=== PATIENT | male | born 1945 | race African-American/Black ===

== ENCOUNTER 2017-11-16 08:22 | Observation (INO) ==
[2017-11-16] MEDS ORDERED: Nitroglycerin 0.4 MG TAB.SUBL SL PRN (08:33)
--- NOTE | 2017-11-16 08:38 | Emergency Department Note ---
Disposition Clinical Impression: Pulmonary nodule Chest pain Qualifiers: Chest pain type: unspecified Qualified Code(s): R07.9 - Chest pain, unspecified Disposition: Admitted As Inpatient Condition: Good Referrals: Lashonda Benitez MD [Primary Care Provider] - Forms: ED Satisfaction Letter Time of Disposition: 09:32 Chest Pain HPI - General Chief Complaint: ED Chest Pain Stated Complaint: CP Time Seen by Provider: 11/16/17 08:28 Source: patient, family Mode of arrival: ambulatory Limitations: no limitations Vital Signs Reviewed: Yes Nursing Notes Reviewed: Yes - History of Present Illness HPI Narrative: Chest discomfort described as gas and indigestion started at 03:00. Symptoms improved but persistent. The patient feels lightheaded when he stands, dizzy and has a dry mouth. The patient has a history of myocardial infarction in the mid 90s without coronary artery stenting. Pt complaint: chest pain Onset (ago): hour(s) Duration: constant Onset: during rest Pain Location: substernal Severity: moderate Severity scale (1-10): 4 Quality: heaviness, other Pain Radiation: none Improves with: nothing Worsens with: nothing Associated symptoms: Reports: other ([place] cold, dry mouth, lightheaded, dizzy) Treatments prior to arrival chest pain: none - Related Data Home Medications Medication Instructions Recorded Confirmed Aspirin [Lo-Dose Aspirin EC] 81 mg PO DAILY 11/16/17 11/16/17 Metoprolol Tartrate [Metoprolol 50 mg PO DAILY 11/16/17 11/16/17 Tartrate] Multivitamin [One Daily Essential] 1 tab PO DAILY 11/16/17 11/16/17 [place]-3 Fatty Acids [Fish Oil] 300 mg PO DAILY 11/16/17 11/16/17 Tamsulosin [Flomax] 0.4 mg PO DAILY 11/16/17 11/16/17 hydroCHLOROthiazide 25 mg PO DAILY 11/16/17 11/16/17 [Hydrochlorothiazide] Allergies Allergy/AdvReac Type Severity Reaction Status Date / Time No Known Allergies Allergy Verified 11/16/17 09:45 All systems ED: reviewed and negative except as stated. Constitutional: Reports: as per HPI Eyes: Reports: other (Dry mouth) ENT ED: Reports: as per HPI Cardiovascular: Reports: chest pain Respiratory: Reports: as per HPI Gastrointestinal: Reports: as per HPI Genitourinary: Reports: as per HPI Musculoskeletal: Reports: as per HPI Integumentary: Reports: as per HPI Neurological: Reports: other (Lightheaded, dizzy) Psychiatric: Reports: as per HPI Endocrine: Reports: as per HPI Hematological/Lymphatic: Reports: as per HPI Allergic/Immunologic: Reports: as per HPI Chest Pain PMH - Past Medical History Medical history: Reports: coronary artery disease, hyperlipidemia, hypertension , myocardial infarction Surgical history: Reports: herniorrhaphy Psychiatric history: Reports: no psych history - Social History Smoking Status: Former smoker Alcohol use: Reports: none Drug use: Reports: none Physical Exam - General Limitations: no limitations General appearance: alert, in no apparent distress - Head Head exam: atraumatic - Eye Eye exam: Present: normal appearance - ENT ENT exam: normal exam - Neck Neck exam: Present: normal inspection, full ROM - Chest Chest inspection: Present: normal inspection, symmetric chest wall rise - Respiratory Respiratory exam: Present: normal lung sounds bilaterally - Cardiovascular Cardiovascular exam: Present: regular rate, normal rhythm, normal heart sounds - Abdominal Exam Abdominal exam: Present: soft, Non-Tender Abdominal tenderness: Absent: RUQ - Rectal Exam Rectal exam: Present: deferred - Extremities Exam Extremities exam: Present: normal inspection - Neurological Exam Neurological exam: Present: alert, oriented X3, CN II-XII intact - Psychiatric Psychiatric exam: Present: normal affect, normal mood - Skin Skin exam: Present: warm, dry, intact Course Course Narrative: Patient presents with chest pain. Initial ECG does not identify any acute ST segment elevation. Chest pain workup with attention to cardiac troponin initiated Vital Signs Temperature 99.6 F 11/16/17 08:23 Pulse Rate 82 11/16/17 08:23 Respiratory Rate 18 11/16/17 08:23 Blood Pressure 174/84 11/16/17 08:23 O2 Sat by Pulse Oximetry 97 11/16/17 08:23 Temperature 99.6 F 11/16/17 08:33 Pulse Rate 73 11/16/17 10:25 Respiratory Rate 18 11/16/17 10:25 Blood Pressure 134/75 11/16/17 10:25 O2 Sat by Pulse Oximetry 94 11/16/17 10:25 Oxygen Delivery Oxygen Delivery Room Air Chest Pain - Lab Data Lab results reviewed: Yes I reviewed the patient's lab results. Result diagrams: 11/16/17 08:35 11/16/17 08:35 Lab Results 11/16/17 11/16/17 11/16/17 Range/Units 08:35 08:35 08:35 WBC 9.2 (4.3-11.1) K/mcL RBC 5.21 (4.19-5.50) M/mcL Hgb 15.9 (12.9-16.9) g/dL Hct 43.4 (37.5-50.1) % MCV 83.3 (83.0-100.0) fL MCH 30.5 (28.0-33.3) pg MCHC 36.6 H (31.6-35.5) g/dL RDW 12.6 (11.5-14.5) % Plt Count 159 (140-400) K/mcL MPV 11.7 (9.4-12.4) fL Immature Gran % 0.2 (0-4) % Seg Neutrophils % 92.7 % Lymphocytes % 2.8 % Monocytes % 3.8 % Eosinophils % 0.4 % Basophils % 0.1 % Neutrophils # 8.5 (1.6-8.9) K/mcL Lymphocytes # 0.3 L (0.6-4.6) K/mcL Monocytes # 0.4 (0.0-1.3) K/mcL Eosinophils # 0.0 (0.0-0.6) K/mcL Basophils # 0.0 (0.0-0.2) K/mcL PT 10.8 (9.4-12.1) Seconds INR 1.0 APTT 26.5 (26.0-36.0) Seconds Sodium 145 (136-145) mEq/L Potassium 3.6 (3.5-5.1) mEq/L Chloride 107 (98-107) mEq/L Carbon Dioxide 25 (23-29) mEq/L BUN 20 (8-23) mg/dL Creatinine 1.14 (0.70-1.30) mg/dL Est GFR ( Amer) > 60 (> 60) Est GFR (Non-Af Amer) > 60 (> 60) BUN/Creatinine Ratio 18 (6-26) Glucose 124 H (70-105) mg/dL Calculated Osmolality 304 H (280-300) Calcium 9.6 (8.6-10.3) mg/dL Troponin I < 0.03 (< 0.04) ng/mL - Radiology Data Radiology results reviewed: Yes I reviewed the patient's radiology results. - EKG Data EKG attestation: Yes I reviewed and interpreted this EKG. EKG results narrative: Normal sinus rhythm with first-degree AV block rate 82 FL-221 QRS 99 QT/QTC 367/ 406. Study compared to previous dated 10/15/11 Heart Score - Score History: Moderately Suspicious EKG: Normal Age: Greater than 65 Risk Factors: 1-2 risk factors Troponin: Less than normal limit HEART Score Total: 4
[2017-11-16 09:06] LABS: Basophils % 0.1 %; Eosinophils % 0.4 %; Hematocrit 43.4 % (37.5-50.1); Hemoglobin 15.9 g/dL (12.9-16.9); Immature Granulocytes % 0.2 % (0-4); Lymphocytes # 0.3 K/mcL (0.6-4.6); Lymphocytes % 2.8 %; Mean Corpuscular HGB Conc 36.6 g/dL (31.6-35.5); Mean Corpuscular Hemoglobin 30.5 pg (28.0-33.3); Mean Corpuscular Volume 83.3 fL (83.0-100.0); Mean Platelet Volume 11.7 fL (9.4-12.4); Monocytes # 0.4 K/mcL (0.0-1.3); Monocytes % 3.8 %; Neutrophils # 8.5 K/mcL (1.6-8.9); Platelet Count 159 K/mcL (140-400); Red Blood Count 5.21 M/mcL (4.19-5.50); Red Cell Distribution Width 12.6 % (11.5-14.5); Segmented Neutrophils % 92.7 %
[2017-11-16 09:11] LABS: Prothrombin Time 10.8 Seconds (9.4-12.1)
[2017-11-16 09:13] LABS: Activated Partial Thrombo Time 26.5 Seconds (26.0-36.0)
[2017-11-16 09:29] LABS: BUN/Creatinine Ratio 18 (6-26); Blood Urea Nitrogen 20 mg/dL (8-23); Calcium 9.6 mg/dL (8.6-10.3); Carbon Dioxide 25 mEq/L (23-29); Chloride 107 mEq/L (98-107); Glucose 124 mg/dL (70-105); Osmolality,Calculated 304 (280-300); Potassium 3.6 mEq/L (3.5-5.1); Sodium 145 mEq/L (136-145); eGFR For African Americans > 60 (> 60); eGFR For Non-African Americans > 60 (> 60)
[2017-11-16 09:30] LABS: Troponin I < 0.03 ng/mL (< 0.04)
--- NOTE | 2017-11-16 12:35 | Internal Med History&Physical ---
<Dotty Lockett - Last Filed: 11/16/17 12:26> Date of Encounter: 11/16/17 Time of Encounter: 12:26 Internal Medicine - H&P: HPI Chief complaint: Chest Pain Admitted From: Home Plans for Post Hospital Care: Home History of present illness: Mr. Dean is a 72 year old male who present with a atypical dull pressure in mid -substernal to epigastric region that radiated under both breast with associated nausea and SOB, that woke him up from sleep. The patient has history of HTN, LA in , CAD, and HLD. The patient indicated that his pain continued until he reached the ED was given 1 nitro. He states that he initially thought it was GERD, because he has been having alot of heart burn but he wasn't sure. He indicated that he had been taking prilosec with good relief but until he competed the 30-day supply a while ago. The patient indicated that when he had his LA in the he eventually had a heart cath. No stents were placed. He stated he was treated medically with toprol and made lasting lifestyle changes, which included diet and exercise. The patient indicated that he has not had any cardiac issues since the LA, until today. EKG showed NSR with 1st degree AVB. Rate 84. Bp is marginally high at 147/73. Temp was 99.3. Trop was negative@ <0.03. Chest xray showed a pulmonary nodule on Right upper lobe. Past Med Surg Social Fam HX - Past Medical History Medical history: coronary artery disease, hyperlipidemia, hypertension, myocardial infarction Psychiatric history: no psych history - Past Surgical History Surgical History: herniorrhaphy - Social History Smoking Status: Former smoker Smokeless Tobacco Status: No Alcohol use: none Drug use: none Internal Medicine - H&P: Meds Aspirin [Lo-Dose Aspirin EC] 81 mg PO DAILY 11/16/17 [History] Metoprolol Tartrate [Metoprolol Tartrate] 50 mg PO DAILY 11/16/17 [History] Multivitamin [One Daily Essential] 1 tab PO DAILY 11/16/17 [History] [place]-3 Fatty Acids [Fish Oil] 300 mg PO DAILY 11/16/17 [History] Tamsulosin [Flomax] 0.4 mg PO DAILY 11/16/17 [History] hydroCHLOROthiazide [Hydrochlorothiazide] 25 mg PO DAILY 11/16/17 [History] 3 Allergy/AdvReac Type Severity Reaction Status Date / Time No Known Allergies Allergy Verified 11/16/17 09:45 All Systems PM: A 10-system review of systems was performed and is negative for pertinent findings except as documented above in the HPI. - Constitutional Constitutional: no chills, no fever(s), no night sweats - EENT Eyes: no change in vision, no discharge, no pain, no photophobia Ears: no ear discharge, no ear pain, no tinnitus Nose, mouth and throat: no dysphagia, no nasal discharge, no neck pain, no sore throat - Cardiovascular Cardiovascular ROS IM: chest pain, diaphoresis, dyspnea, no lightheadedness, no palpitations, no syncope - Respiratory Respiratory: no cough, no dyspnea, no wheezing, no excessive phlegm production - Gastrointestinal Gastrointestinal: heartburn, nausea, no abdominal pain, no diarrhea, no hematemesis, no hematochezia, no melena, no vomiting - Musculoskeletal Musculoskeletal ROS IM: no numbness, no tingling - Integumentary Integumentary IM: no rash, no unusual bruising - Neurological Neurological ROS: no confusion, no convulsions, no focal weakness, no numbness, no tingling, no tremor(s) - Hematologic/Lymphatic Hematologic/Lymphatic: no easy bruising - Constitutional Vitals: Temp Pulse Resp BP Pulse Ox 99.6 F 73 18 133/73 94 11/16/17 08:33 11/16/17 10:25 11/16/17 12:12 11/16/17 12:12 11/16/17 10:25 General appearance: Present: A&O X 3 - Head Head exam: Present: atraumatic, normocephalic - Eye Eye exam: Present: PERRL, conjuntiva pink, sclera anicteric Pupils: Present: PERRL - Neck Neck exam general surgery: Present: supple, trachea midline. Absent: lymphadenopathy - Respiratory Respiratory exam: Present: CTAB. Absent: accessory muscle use, rales, rhonchi, wheezes - Cardiovascular Cardiovascular exam: Present: RRR, +S1, +S2. Absent: diastolic murmur, gallop, rubs, systolic murmur - GI/Abdominal GI/Abdominal exam: Present: normal bowel sounds, soft, no peritoneal signs. Absent: distended, tenderness - Extremities Exam Extremities exam: Present: warm, radial pulses palpable and symmetrical. Absent : calf tenderness, cyanotic, pedal edema - Neurological Exam Neurological exam: Present: CN II-XII intact, oriented X3, no focal deficits. Absent: pronater drift, facial droop, speech deficit - Skin Skin exam: Present: dry, intact Internal Med - H&P Results - Labs CBC & Chem 7: 11/16/17 08:35 11/16/17 08:35 - Assessment and plan (1) Chest pain Current Visit: Yes Status: Acute Assessment and plan: The patient chest pain was completely relieved by 1 nitro in the ED. He currently rates pain 0/10. Will get cardiac serial enzymes, give nitro SL prn pain, and cardiac monitoring. Qualifiers: Chest pain type: unspecified Qualified Code(s): R07.9 - Chest pain, unspecified (2) Pulmonary nodule Current Visit: Yes Status: Acute Assessment and plan: The patient was identified as having a pulmonary nodule on the right upper lobe that will need to followed up as outpatient. (3) Hypertension Current Visit: Yes Status: Acute Assessment and plan: Bp is marginally high at 147/73. Will resume HCTZ and metoprolol. Qualifiers: Hypertension type: essential hypertension Qualified Code(s): I10 - Essential (primary) hypertension (4) HLD (hyperlipidemia) Current Visit: Yes Status: Acute Assessment and plan: The patient was given 80 mg atorvastatin and will start 40 mg every HS on . A fasting lipid panel ordered for am. Qualifiers: Hyperlipidemia type: unspecified Qualified Code(s): E78.5 - Hyperlipidemia , unspecified - Time Spent With Patient Total time spent is greater than 50% in coordination of care (as documented) at patient's floor/unit and/or counseling patient: <Stephanie Laboy - Last Filed: 11/16/17 16:35> Date of Encounter: 11/16/17 Internal Medicine - H&P: HPI History of present illness: Mr. Dean is a 72 year old male Past Med Surg Social Fam HX - Family History Sister Living Status: Still Living Hx Family Cardiac Disorders: Yes (HTN) All Systems PM: A 10-system review of systems was performed and is negative for pertinent findings except as documented above in the HPI. - Constitutional Vitals: Temp Pulse Resp BP Pulse Ox 100 F H 72 14 133/67 94 11/16/17 15:05 11/16/17 15:05 11/16/17 15:05 11/16/17 15:05 11/16/17 15:05 Internal Med - H&P Results - Labs CBC & Chem 7: 11/16/17 08:35 11/16/17 08:35 Labs: Cardiac Enzymes 11/16/17 Range/Units 13:49 Troponin I < 0.03 (< 0.04) ng/mL - Attending Attestation Patient is examined and review of the note. Patient is chest pain-free. Had heart catheter almost 20 years ago not sure about the finding but he was advised to continue aspirin and life is started change. 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 Patient need ischemic cardiac workup though has atypical chest pain but several risk factor including positive family history. Will consider anticoagulations therapy if any change in EKG or positive troponin. Will also consult lifeguard if needed. - Time Spent With Patient Total time spent is greater than 50% in coordination of care (as documented) at patient's floor/unit and/or counseling patient:
[2017-11-16] MEDS ORDERED: Acetaminophen 325 MG TABLET PO PRN (21:03)
[2017-11-17 02:07] LABS: BUN/Creatinine Ratio 14 (6-26); Blood Urea Nitrogen 18 mg/dL (8-23); Calcium 8.6 mg/dL (8.6-10.3); Carbon Dioxide 27 mEq/L (23-29); Chloride 102 mEq/L (98-107); Chol/HDL Ratio 3.4 (0-4.9); Cholesterol 143 mg/dL (< 200); Glucose 114 mg/dL (70-105); HDL Cholesterol 42 mg/dL (40-59); LDL Cholesterol,Calculated 84 mg/dL (0-99); Osmolality,Calculated 289 (280-300); Sodium 138 mEq/L (136-145); Triglycerides 84 mg/dL (< 150); eGFR For African Americans > 60 (> 60); eGFR For Non-African Americans 56 (> 60)
[2017-11-17] MEDS ORDERED: Regadenoson 0.4 MG/5 ML SYRINGE IVP ONE (05:35)
[2017-11-17] MEDS ORDERED: hydroCHLOROthiazide 25 MG TABLET PO SCH (09:00)
[2017-11-17] MEDS ORDERED: Aspirin Enteric Coated 81 MG Tablet PO SCH (09:00)
[2017-11-17] MEDS ORDERED: Multivit/Ca/Min/Fe/FA 1 TAB TABLET PO SCH (09:00)
[2017-11-17] MEDS ORDERED: (Omega-3 Fatty Acids [Fish Oil] 300 MG) PO SCH (09:00)
--- NOTE | 2017-11-17 10:26 | Internal Med Progress Note ---
Date of Encounter: 11/17/17 Time of Encounter: 10:23 - Assessment and plan (1) Chest pain Current Visit: Yes Status: Acute Assessment and plan: Presented with midsternal chest pain radiating bilaterally, associated shortness of breath and nausea. Pain currently 0 out of 10 this morning. Was relieved by one nitroglycerin in the ED. No return of chest pain since admission. Resting comfortably in bed. Per auscultation heart tones are S1, S2 , RRR without murmurs rubs or gallops. Lungs are CTA AP and L, no peripheral edema noted, no JVD. Patient underwent a nuclear stress this morning, pending Echocardiogram completed, results are as follows -LVEF 65%, normal LV chamber size wall thickness and function, mild LVDD, mildly dilated right atrium, moderately dilated left atrium, no aortic regurgitation or stenosis noted, no mitral valve regurgitation or stenosis noted , no valvular abnormalities. No evidence of pulmonary hypertension noted Continue to monitor telemetry and closely monitor hemodynamic status Troponins negative 4, EKG unremarkable; no ischemic changes noted Cardiology following Continue cardiac medications Heparin twice a day for DVT prophylaxis Qualifiers: Chest pain type: unspecified Qualified Code(s): R07.9 - Chest pain, unspecified (2) CAD (coronary artery disease) Current Visit: Yes Status: Acute Assessment and plan: History of CAD, prior MO in 1993. Has not had cardiac workup since 1993. Continue aspirin, statin and beta stiven. See assessment and plan above Qualifiers: Qualified Code(s): I25.10 - Atherosclerotic heart disease of [place] coronary artery without angina pectoris (3) HLD (hyperlipidemia) Current Visit: Yes Status: Acute Qualifiers: Hyperlipidemia type: unspecified Qualified Code(s): E78.5 - Hyperlipidemia , unspecified (4) Hypertension Current Visit: Yes Status: Acute Assessment and plan: History of HTN, BP stable, continue anti-HTN medications. HCTZ, metoprolol Qualifiers: Hypertension type: essential hypertension Qualified Code(s): I10 - Essential (primary) hypertension (5) Pulmonary nodule Current Visit: Yes Status: Acute Assessment and plan: Incidental pulmonary nodule found on chest x-ray findings are as follows 15 mm dense nodular density superimposed upon the anterior aspect of the right 1st rib favored to represent costal cartilage calcification or underlying calcified granuloma. Malignant nodule cannot be completely excluded but felt to be less likely. Follow-up CT chest can be completed as outpatient Denies any flu/URI type symptoms including cough, fevers, chills, weight loss, night sweats Stable from a respiratory perspective on room air - Time Spent With Patient Total time spent is greater than 50% in coordination of care (as documented) at patient's floor/unit and/or counseling patient: 25 - 35 minutes - Subjective Interval history: Mr. Dean is a 72-year-old male who presented to ED with atypical dull pressure that is midsternal and radiation bilaterally. Associated symptoms include nausea and shortness of breath. He reports that the chest pressure woke him up from sleep around 3 AM and improved with nitroglycerin in the ED. KG negative for ischemia, troponins negative 3. Patient denies any chest pain this morning , reports that he has no troubles breathing. - Constitutional Vitals: Temp Pulse Resp BP Pulse Ox 98.9 F 77 16 119/72 92 11/17/17 10:10 11/17/17 10:10 11/17/17 10:10 11/17/17 10:10 11/17/17 10:10 General appearance: Present: A&O X 3 - Head Head exam: Present: atraumatic, normocephalic - Eye Eye exam: Present: PERRL, conjuntiva pink, sclera anicteric Pupils: Present: PERRL - Neck Neck exam general surgery: Present: supple, trachea midline. Absent: lymphadenopathy - Respiratory Respiratory exam: Present: CTAB. Absent: accessory muscle use, rales, rhonchi, wheezes - Cardiovascular Cardiovascular exam: Present: RRR, +S1, +S2. Absent: diastolic murmur, gallop, rubs, systolic murmur - GI/Abdominal GI/Abdominal exam: Present: normal bowel sounds, soft, no peritoneal signs. Absent: distended, tenderness - Extremities Exam Extremities exam: Present: warm, radial pulses palpable and symmetrical. Absent : calf tenderness, cyanotic, pedal edema - Neurological Exam Neurological exam: Present: CN II-XII intact, oriented X3, no focal deficits. Absent: pronater drift, facial droop, speech deficit - Skin Skin exam: Present: dry, intact Internal Medicine: Result - Labs CBC & Chem 7: 11/16/17 08:35 11/17/17 00:52 Labs: BMP 11/17/17 00:52 Sodium 138 Potassium 3.0 L Chloride 102 Carbon Dioxide 27 BUN 18 Creatinine 1.28 Glucose 114 H Calcium 8.6 Cardiac Enzymes 11/16/17 11/16/17 11/17/17 Range/Units 13:49 20:30 00:52 Troponin I < 0.03 < 0.03 < 0.03 (< 0.04) ng/mL - ABG Interpretation ABG results: PT/INR, D-dimer PT 10.8 Seconds (9.4-12.1) 11/16/17 08:35 - Impressions Impressions Echocardiogram 11/17/17 07:00 Impressions: LVEF 65%. Normal LV chamber size, wall thickness and function. Mild left ventricular diastolic dysfunction. Normal right ventricular structure and function. No evidence of pulmonary hypertension. No significant valvular dysfunction. Left Ventricular Wall Motion: Rest Echo Findings All wall segments showed normal motion. Findings: Study Quality * Technically adequate exam. ECG Findings * Normal sinus rhythm. Left Ventricle * LVEF 65%. * Normal LV chamber size, wall thickness and function. * Mild left ventricular diastolic dysfunction. Right Ventricle * Normal right ventricular structure and function. Left Atrium * Moderately dilated left atrium. Right Atrium * Mildly dilated right atrium. Aortic Valve * Trileaflet aortic valve with normal function. * No aortic regurgitation. * No aortic stenosis. Mitral Valve * Normal mitral valve structure and function. * No mitral regurgitation. * No mitral stenosis. Tricuspid Valve * Normal tricuspid valve structure and function. * Trace tricuspid regurgitation. * No evidence of pulmonary hypertension. Pulmonic Valve * Normal pulmonic valve structure. * Mild pulmonic regurgitation. Aorta * Normally sized aortic root. Pericardium * The pericardium appears normal. IVC * Normal IVC dimensions and inspiratory collapse. Pulmonary Artery * Normal visualized portions of the main pulmonary artery. Consult Discharge Plan - Plan Referrals: Lashonda Benitez MD [Primary Care Provider] -
[2017-11-17 11:07] LABS: Bilirubin,Urine Small (Negative); Blood,Urine Negative (Negative); Clarity,Urine Clear (Clear); Color,Urine Dark Yellow (Yellow); Glucose,Urine (UA) Normal (Normal); Ketones,Urine Negative (Negative); Leukocyte Esterase,Urine Negative (Negative); Nitrite,Urine Negative (Negative); Protein,Urine Trace mg/dL (Neg-Trace); Specific Gravity,Urine 1.022 (1.010-1.025); Urobilinogen,Urine Normal (Normal)
[2017-11-17 11:09] LABS: Bacteria,Urine None Seen per hpf (None-Few); Hyaline Casts,Urine None Seen per lpf (None-Few); Squamous Epithelial Cell,Urine Moderate per lpf (None-Few); WBC,Urine 0-3 per hpf (0-3)
[2017-11-17 14:32] VITALS: BP 120/73
--- NOTE | 2017-11-17 15:48 | Electrocardiograph Report ---
[address] [address] Test Date: 2017-11-16 Pat Name: Francisco Javier Dean Department: 104 Room: 3B21 Gender: M Food Service Specialist: BERT : 1945 Requested By: [place] Order Number: [id number] Reading MD: Javier Rodriguez Measurements Intervals [place] Rate: 82 P: 47 [place]: 221 QRS: 6 QRSD: 99 T: 54 QT: 367 QTc: 406 Interpretive Statements SINUS RHYTHM WITH FIRST DEGREE AV BLOCK Electronically Signed On 11-17-2017 15:46:43 EDT by Javier Rodriguez
--- NOTE | 2017-11-17 16:19 | Discharge Summary ---
- NOTES TO OUTPATIENT PROVIDER Notes to Outpatient Provider: Patient admitted for ACS rule out. Admitted with chest pain which has since resolved. Workup found to be negative. ECG with no ischemic changes, troponins negative and stress test unremarkable. to follow- up with PCP in one week Orders not resulted at time of discharge: Pending orders 11/16/17 13:49 Culture,Blood [BC] Routine 11/16/17 16:25 NM lisandro perf SPECT multi [NM] Routine 11/18/17 04:00 B-Type Natriuretic Peptide AM 0400 Basic Metabolic Panel AM 0400 11/19/17 04:00 B-Type Natriuretic Peptide AM 0400 Basic Metabolic Panel AM 0400 Date of Encounter: 11/17/17 Time of Encounter: 16:16 - Discharge Diagnosis (1) Chest pain Priority: Primary Status: Acute Assessment and Plan: Presented with midsternal chest pain radiating bilaterally, associated shortness of breath and nausea. Pain currently 0 out of 10 this morning. Was relieved by one nitroglycerin in the ED. No return of chest pain since admission. Resting comfortably in bed. Per auscultation heart tones are S1, S2 , RRR without murmurs rubs or gallops. Lungs are CTA AP and L, no peripheral edema noted, no JVD. Patient is continue to have an uneventful hospital course , has not had a return of chest pain. He has remained hemodynamically stable throughout the stay. Workup has been found to be completely negative. The patient is medically stable and safe for discharge. He has been instructed to continue cardiac medications, furthermore, he has been instructed that he should follow up with his primary care provider within one week of discharge. Additionally, the patient has been instructed that should chest pain and/or shortness of breath return he should return to the ED immediately. Patient underwent a nuclear stress this morning, stress test found to be negative for ischemia, perfusion imaging negative for ischemia Echocardiogram completed, results are as follows -LVEF 65%, normal LV chamber size wall thickness and function, mild LVDD, mildly dilated right atrium, moderately dilated left atrium, no aortic regurgitation or stenosis noted, no mitral valve regurgitation or stenosis noted , no valvular abnormalities. No evidence of pulmonary hypertension noted Continue to monitor telemetry and closely monitor hemodynamic status Troponins negative 4, EKG unremarkable; no ischemic changes noted Cardiology following Continue cardiac medications Heparin twice a day for DVT prophylaxis Qualifiers: Chest pain type: unspecified Qualified Code(s): R07.9 - Chest pain, unspecified (2) CAD (coronary artery disease) Priority: Secondary Status: Acute Assessment and Plan: History of CAD, prior SD in 1993. Has not had cardiac workup since 1993. Continue aspirin, statin and beta stiven. See assessment and plan above Qualifiers: Qualified Code(s): I25.10 - Atherosclerotic heart disease of [place] coronary artery without angina pectoris (3) HLD (hyperlipidemia) Priority: Secondary Status: Acute Qualifiers: Hyperlipidemia type: unspecified Qualified Code(s): E78.5 - Hyperlipidemia , unspecified (4) Hypertension Priority: Secondary Status: Acute Assessment and Plan: History of HTN, BP stable, continue anti-HTN medications. HCTZ, metoprolol Qualifiers: Hypertension type: essential hypertension Qualified Code(s): I10 - Essential (primary) hypertension (5) Pulmonary nodule Priority: Secondary Status: Acute Assessment and Plan: Incidental pulmonary nodule found on chest x-ray findings are as follows 15 mm dense nodular density superimposed upon the anterior aspect of the right 1st rib favored to represent costal cartilage calcification or underlying calcified granuloma. Malignant nodule cannot be completely excluded but felt to be less likely. Follow-up CT chest can be completed as outpatient Denies any flu/URI type symptoms including cough, fevers, chills, weight loss, night sweats Stable from a respiratory perspective on room air Hospital course: Mr. Dean is a 72 year old male Discharge discussed with: patient, family, nurse, business information consultant - Time Spent with Patient Total time spent providing and/or coordinating discharge services: Greater than 30 minutes - Discharge Medications Home Medications: Aspirin [Lo-Dose Aspirin EC] 81 mg PO DAILY 11/16/17 [History] Metoprolol Tartrate 50 mg PO DAILY 11/16/17 [History] Multivitamin [One Daily Essential] 1 tab PO DAILY 11/16/17 [History] [place]-3 Fatty Acids [Fish Oil] 300 mg PO DAILY 11/16/17 [History] Tamsulosin [Flomax] 0.4 mg PO DAILY 11/16/17 [History] hydroCHLOROthiazide [Hydrochlorothiazide] 25 mg PO DAILY 11/16/17 [History] Allergies/Adverse Reactions: 3 Allergy/AdvReac Type Severity Reaction Status Date / Time No Known Allergies Allergy Verified 11/16/17 09:45 Date of admission: 11/16/17 12:05 Primary care physician: Lashonda Benitez MD Discharging clinician: Arnoldo Vang Anticipated date of discharge: 11/17/17 - Constitutional Vitals: Temp Pulse Resp BP Pulse Ox 98.1 F 68 17 120/73 95 11/17/17 14:31 11/17/17 14:31 11/17/17 14:31 11/17/17 14:31 11/17/17 14:31 General appearance: Present: A&O X 3 - Head Head exam: Present: atraumatic, normocephalic - Eye Eye exam: Present: PERRL, conjuntiva pink, sclera anicteric Pupils: Present: PERRL - Neck Neck exam general surgery: Present: supple, trachea midline. Absent: lymphadenopathy - Respiratory Respiratory exam: Present: CTAB. Absent: accessory muscle use, rales, rhonchi, wheezes - Cardiovascular Cardiovascular exam: Present: RRR, +S1, +S2. Absent: diastolic murmur, gallop, rubs, systolic murmur - GI/Abdominal GI/Abdominal exam: Present: normal bowel sounds, soft, no peritoneal signs. Absent: distended, tenderness - Extremities Exam Extremities exam: Present: warm, radial pulses palpable and symmetrical. Absent : calf tenderness, cyanotic, pedal edema - Neurological Exam Neurological exam: Present: CN II-XII intact, oriented X3, no focal deficits. Absent: pronater drift, facial droop, speech deficit - Skin Skin exam: Present: dry, intact - Patient Status Disposition: Home, Self-Care Condition: Good Overall status at discharge: patient is back to baseline - Discharge Instructions Follow Up With: Lashonda Benitez MD [Primary Care Provider] - 11/22/17 10:30 am
[2017-11-17] MEDS ORDERED: *HR* Heparin 5,000 UNIT/ML VIAL SQ SCH (18:00)
== END 2017-11-17 16:58 | disposition home or self-care (01) ==
LOC: EMEROO 08:22 → 3BNU 08:22
PROVIDERS: ADMIT General Practice; ATTEND General Practice